=== PATIENT | female | born 1935 | race Caucasian/White ===

== ENCOUNTER 2020-07-07 12:47 | Observation (INO) | payer MEDICARE, OTHER ==
[~2020-07-07] VITALS: Ht 170.2 cm; Wt 81.7 kg
[2020-07-07 13:14] LABS: BASOPHILS ABSOLUTE AUTO 0.04 K/mm3 (0.00-0.23); BASOPHILS PERCENT AUTO 0 % (0-2); EOSINOPHILS ABSOLUTE AUTO 0.01 K/mm3 (0.00-0.68); EOSINOPHILS PERCENT AUTO 0 % (0-6); Hematocrit 41.5 % (33.0-51.0); Hemoglobin 14.6 g/dL (11.5-16.0); IMMATURE GRAN ABSOLUTE AUTO 0.04 K/mm3 (0.00-0.10); IMMATURE GRAN PERCENT AUTO 0 % (0-1); LYMPHOCYTES ABSOLUTE AUTO 0.83 K/mm3 (0.84-5.20); LYMPHOCYTES PERCENT AUTO 6 % (21-46); MONOCYTES ABSOLUTE AUTO 0.35 K/mm3 (0.16-1.47); MONOCYTES PERCENT AUTO 2 % (4-13); Mean Corpuscular HGB 32.1 pg (26.0-34.0); Mean Corpuscular HGB Conc 35.2 g/dL (31.5-36.5); Mean Corpuscular Volume 91 fL (80-100); Mean Platelet Volume 9.5 fL (9.1-12.4); NEUTROPHILS ABSOLUTE AUTO 13.92 K/mm3 (1.96-9.15); NEUTROPHILS PERCENT AUTO 92 % (41-73); Platelet Count 239 K/mm3 (150-400); RDW Coefficient Variation 11.8 % (11.7-14.2); RDW Standard Deviation 39.8 fL (35.1-46.3); Red Blood Cell Count 4.55 M/mm3 (3.80-5.20); White Blood Cell Count 15.19 K/mm3 (4.00-11.30)
[2020-07-07] MEDS ORDERED: HYDCHL25 PO (13:22)
[2020-07-07] MEDS ORDERED: Ramipril10 MG PO (13:23)
[2020-07-07] MEDS ORDERED: METOPROLOL TART25 MG PO (13:23)
[2020-07-07] MEDS ORDERED: NITR.4SL SL (13:23)
[2020-07-07] MEDS ORDERED: Pravachol40 MG PO (13:23)
[2020-07-07 13:36] LABS: International Normalized Ratio 1.02; Prothrombin Time Results 10.9 Sec (9.7-11.5)
[2020-07-07 13:45] LABS: Alanine Aminotransfer (ALT/SGP 21 U/L (12-78); Albumin, Blood 3.6 g/dL (3.4-5.0); Albumin/Globulin Ratio 0.9 (0.8-1.8); Alk Phos 54 U/L (50-136); Anion Gap 9 mmol/L (6-16); Aspartate Aminotrans (AST/SGOT 22 U/L (12-37); Bilirubin, Total 0.6 mg/dL (0.1-1.0); Blood Urea Nitrogen 19 mg/dL (8-24); Bun/Creatinine Ratio 22.6 (12.0-20.0); CO2, Blood 28 mmol/L (21-32); Calcium, Blood 8.8 mg/dL (8.5-10.1); Chloride, Blood 96 mmol/L (98-108); Creatinine, Blood 0.84 mg/dL (0.40-1.00); Ethanol (Alcohol), Blood, Med <3 mg/dL; Globulin, Blood 3.8 g/dL (2.2-4.0); Glomerular Filtration Rate >60 (60-); Glucose, Blood 242 mg/dL (70-99); Potassium, Blood 3.1 mmol/L (3.5-5.5); Sodium, Blood 133 mmol/L (136-145); Total Protein, Blood 7.4 g/dL (6.4-8.2)
--- NOTE | 2020-07-07 14:21 | NUR ---
pt unresponsive diagnostics show large hemoragic stroke. NO family present for her she has caregiver who is like family to her and her decision maker. Goal is comfort only will be admitted and monitor for comfort and care of neurological symptoms. comfort quilt placed pt [facility]planned [facility].
--- NOTE | 2020-07-07 15:40 | NUR ---
RECEIVED REPORT FROM ROSALIO DILLON RN, [id number]. PATIENT TO BE TRANSFERED TO ROOM 327 ON COMFORT CARE.
--- NOTE | 2020-07-07 16:36 | NUR ---
pt unresposneve no s/s of distress or airhunger. Medcial floor saff bather porfirio nd covered her with soft blankets!
--- NOTE | 2020-07-07 19:15 | NUR ---
patient unresponsive. left facial droop. larger pupil to the right eye. vomits brown substance, suction set up in room. skin CDI. admission completed mostly by med records as patient is not responsive and family not present. Comfort care protocol followed. patient appears to be in comfort.
--- NOTE | 2020-07-07 21:55 | NUR ---
Omaira Tong PT's DTR called & updated on PT's comfort. She says to call anytime. PT continues nonresponsive with cares channel playing. PT enjoys music, played Piano.
--- NOTE | 2020-07-07 23:45 | NUR ---
PT heard retching & despite compazine earlier had coffeground thin emisis moderate amt. Cleansed & repositioned with hob as per orders. Resting quietly.
--- NOTE | 2020-07-08 06:45 | NUR ---
pt COMFORT CARE AFTER BEING FOUND DOWN HEMMORAGHIC STROKE. sHE HAD COFFEE GROUND EMISIS X 1 .
--- NOTE | 2020-07-08 12:25 | NUR ---
[facility] Care Comfort care visit - Family/friend at room with questions when I arrived to room for assessment. Omaira Tong [phone] requested update and information. I am new to [place] but assessed pt with Omaira at bedside and shared my assessment. Pt does not have nonverbal indicators of pain, anxiety, distress or restlessnes noted. Skin w/d. She is unresponsive to voice and touch. Omaira stated she was unsure what had been decided and wanted an update on plans for pt. I was informed by RN, DR and CM that no d/c from hospital planned. Omaira was on her way to her own PT myron and we agreed I would call her with a more complete update after 2pm today. She was appreciative of the time spent with her. I edcuated her on normal progression when there is no food/fluid intake and what to expect. I gave her verbal and written materials, "The 11th hour" on s/s of impending and what to expect, ways she can care for [place] at bedside. Plan to f/u later today as discussed.
--- NOTE | 2020-07-08 14:40 | NUR ---
Telephone update provided to pt's friend Omaira Tong. Discussed s/s to expect, reviewed event/dx found on CT and explained pt's current situation. Omaira expressed gratitude for the call and information.
--- NOTE | 2020-07-08 15:40 | NUR ---
SHIFT SUMMARY PT REMAINS ON COMFORT CARE. SHE HAS BEEN RESTING COMFORTABLEY IN BED TODAY. PALLIATIVE CARE SAW THE PT AT THE BEDSIDE. NO FAMILY HAS BEEN HERE TODAY. SHE HAS BEEN REPOSITIONED FREQUENTLY. ORAL CARE DONE. PT IS RESTING IN BED WITH EYES CLOSED.
--- NOTE | 2020-07-08 17:24 | NUR ---
Spiritual care note: No family/friends present. Mrs. Flynn was non-responsive but appears comfortable. Sat at bedside for awhile providing touch/presence. [employer] services will remain available.
--- NOTE | 2020-07-08 22:02 | NUR ---
Repositioned pt Checked pt attends and pt was dry.
--- NOTE | 2020-07-09 02:19 | NUR ---
PT DIAPHORETIC AND WARM TO TOUCH FAN PROVIDED TO PT FOR ADDITIONAL COMFORT.
--- NOTE | 2020-07-09 05:33 | NUR ---
SHIFT SUMMARY PT CONTINUES TO BE UNRESPONSIVE, BUT APPEARS TO HAVE RESTED COMFORTABLY T/O THE NIGHT. PT DIAPHORETIC AND WARM TO TOUCH. FAN PROVIDED FOR ADDITIONAL COMFORT. NO N/V THIS SHIFT. PT CONTINUES TO VOID URINE AND HAD ONE INCONTINENT VOID THIS SHIFT. NO FAMILY IN TO SEE PT THIS SHIFT. NO ACUTE CHANGES. COMFORT ASSESSED T/O SHIFT. BED IN LOWEST POSITION, CALL LIGHT WITHIN REACH.
== END 2020-07-09 14:06 ==
LOC: ER 12:47 → MEDS 12:48 → ER 14:39 → MEDS 14:39 → ER 15:41 → MEDS 15:58
PROVIDERS: Emergency Medicine; ADMIT Internal Medicine
DX: I61.9 Nontraumatic intracerebral hemorrhage, unspecified (principal); I10 Essential (primary) hypertension; E78.5 Hyperlipidemia, unspecified; Z87.891 Personal history of nicotine dependence; Z66 Do not resuscitate; Z88.1 Allergy status to other antibiotic agents; Z88.8 Allergy status to other drugs, medicaments and biological substances; Z79.899 Other long term (current) drug therapy
CPT/HCPCS: 70450; 80053; 85025; 85610; 85730; 93005; 93010; 99285-25; G0378; G0480; J0780